=== PATIENT | male | born 1955 | race Caucasian/White ===

== ENCOUNTER 2020-09-08 10:50 | Emergency (ER) | payer OTHER, SELFPAY ==
[2020-09-08] VITALS (8 sets, daily range): BP systolic 111–134; BP diastolic 64–85; PULSE 80–106; RESP 8–20; TEMP 36.3; O2SAT 97–98; BMI 31.2
--- NOTE | 2020-09-08 11:00 | DI.RAD.S_ITS ---
PROCEDURE: XR CHEST 1V INDICATIONS: palpitations, chest pain TECHNIQUE: One view of the chest was acquired. COMPARISON: None. FINDINGS: Surgical changes and devices: None. Lungs and pleura: Lungs are clear. No pleural effusions or pneumothorax. Mediastinum: Mediastinal contours appear normal. Heart size is normal. Bones and chest wall: No suspicious bony lesions. Overlying soft tissues appear unremarkable. IMPRESSION: No acute cardiopulmonary pathology. Dictated by: Puneet Banuelos M.D. on 09/08/2020 at 11:52 Approved by: Puneet Banuelos M.D. on 09/08/2020 at 11:54
--- NOTE | 2020-09-08 11:05 | ED_ITS ---
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 Patient states for the past 27 hours he is had a heart rate as high as 140 and felt palpitations. He denies any chest pain and is currently not short of breath, though his heart rate has slowed to the 80s and 90s. He states that he thinks he has had other episodes of atrial fibrillation over the past week. He is not anticoagulated. He denies any change in medications or diet complaint: other Onset (ago): hour(s) Duration: constant Pain location: substernal Pain radiation: none Relieving factors: nothing Exacerbating factors: nothing Treatments prior to arrival chest pain: none Related Data Previous Rx's Medication Instructions Recorded apixaban [Eliquis] 5 mg PO BID #60 tab 09/08/20 metoprolol tartrate 50 mg PO BID #60 tab 09/08/20 Allergies Allergy/AdvReac Type Severity Reaction Status Date / Time No Known Drug Allergies Allergy Verified 09/08/20 11:04 Review of Systems Constitutional Constitutional: Denies chills, Denies fatigue, Denies fever(s), Denies frequent falls, Denies lethargy and Denies weakness Eyes Eyes: Denies change in vision, Denies eye discharge, Denies irritation and Denies loss of vision ENT Ears, Nose, Mouth, and Throat: Denies change in voice, Denies dizziness, Denies neck pain, Denies sore throat and Denies throat swelling Cardiovascular Cardiovascular: Denies chest pain, Reports irregular heart rhythm, Denies lightheadedness, Reports palpitations, Reports dyspnea, Reports dyspnea on exertion and Denies orthopnea Respiratory Respiratory: Denies cough, Reports dyspnea, Reports dyspnea on exertion and Denies wheezing Gastrointestinal Gastrointestinal: Denies abdominal pain, Denies change in bowel habits, Denies diarrhea, Denies nausea and Denies vomiting Musculoskeletal Musculoskeletal: Denies neck pain and Denies numbness Integumentary/Breasts Skin/Breast: Denies pruritus, Denies erythema, Denies rash and Denies wounds Neurologic Neurologic: Denies behavioral changes, Denies confusion, Denies dizziness, Denies frequent falls, Denies loss of vision, Denies numbness and Denies weakness Psychiatric Psychiatric: Denies anxiety, Denies behavioral changes, Denies confusion, Denies depression, Denies homicidal ideation and Denies suicidal ideation Endocrine Endocrine: Denies fatigue, Denies flushing and Reports palpitations Hematologic/Lymphatic Hematologic/Lymphatic: Denies easy bruising Allergic/Immunologic Allergic/Immunologic: Denies urticaria, Denies throat swelling and Denies wheezing Patient History Social History Smoking Status: Unknown if ever smoked Smoking Status: Never smoker alcohol intake frequency: 0-2 drinks per day Exam Narrative Exam Narrative: GENERAL: [65] year old patient appears stated age. Well- nourished, well-developed patient, in mild distress. HEAD: Atraumatic. Normocephalic. EYES: Pupils equal round and reactive. Extraocular motions intact. No scleral icterus. No injection or drainage. ENT: Nose without bleeding, purulent drainage. Throat without erythema, tonsillar hypertrophy or exudate. Airway patent. NECK: Trachea midline. Non tender CARDIOVASCULAR: Rapid and irregular rhythm without murmurs, gallops, or rubs. RESPIRATORY: Clear to auscultation. Breath sounds equal bilaterally. No wheezes, rales, or rhonchi. GASTROINTESTINAL: Abdomen soft, non-tender, nondistended. EXTREMITIES: No edema or joint tenderness. BACK: Nontender without deformity or crepitance. No flank tenderness. NEURO: AOx3. SKIN: No rash or erythema of visible areas Initial Vital Signs Initial Vital Signs: Vital Signs Temperature 97.3 F L 09/08/20 10:55 Pulse Rate 100 H 09/08/20 10:55 Respiratory Rate 20 09/08/20 10:55 Blood Pressure 133/85 09/08/20 10:55 Pulse Oximetry 97 09/08/20 10:55 Course Course Course Narrative: Patient heart rate slowed with Cardizem but did not convert to a sinus rhythm. I have had a discussion with the patient's journeyman patternmaker and given the uncertainty of the time line we sure the opinion that he is not a safe candidate for cardioversion at this time. He does recommend anticoagulation, rate control and close follow-up. Orders Ordered: Discontinued Medications Apixaban (Apixaban 5 Mg Tablet) 5 mg PO NOW ONE Stop: 09/08/20 11:03 Last Admin: 09/08/20 11:46 Dose: 5 mg Documented by: NICKI Diltiazem HCl (Diltiazem 5 Mg/Ml Sdv) 20 mg IV NOW ONE Stop: 09/08/20 11:03 Last Admin: 09/08/20 11:16 Dose: 20 mg Documented by: NICKI Sodium Chloride (Normal Saline 0.9%) 1,000 mls @ 150 mls/hr IV CONT QUINCY Last Admin: 09/08/20 11:17 Dose: 150 mls/hr Documented by: NICKI Reevaluation(s) Reevaluation #1: patient asymptomatic after rate control Vital Signs Vital signs: Vital Signs - 8 hr 09/08/20 10:55 09/08/20 11:14 09/08/20 11:15 Temperature 97.3 F L Pulse Rate 100 H 106 H 93 H Respiratory Rate 20 9 L 12 Blood Pressure 133/85 134/73 120/72 Pulse Oximetry 97 97 97 09/08/20 11:20 09/08/20 11:25 09/08/20 11:30 Temperature Pulse Rate 80 81 84 Respiratory Rate 12 10 L 9 L Blood Pressure 111/67 123/67 Pulse Oximetry 97 97 98 MDM - Chest Pain Lab Data Result diagrams: 09/08/20 11:05 09/08/20 11:05 Labs: Lab Results 09/08/20 09/08/20 09/08/20 Range/Units 11:05 11:05 11:05 WBC 11.1 H (4.5-11.0) X10^3/uL RBC 4.94 (4.5-5.9) X10^6/uL Hgb 15.4 (13.5-17.5) g/dL Hct 45.4 (41-53) % MCV 91.9 (80-100) fL MCH 31.1 (26-34) PG MCHC 33.9 (30-36) % RDW 14.1 (11.6-14.8) % Plt Count 269 (150-400) X10^3/uL Neut % (Auto) 68.7 (50-75) % Lymph % (Auto) 19.4 L (25-40) % [place] % (Auto) 7.5 (3-14) % Eos % (Auto) 3.3 (2-4) % Baso % (Auto) 1.1 (0-2) % Neut # (Auto) 7600 H (2081-3748) /uL Lymph # (Auto) 2100 (9224-4175) /uL [place] # (Auto) 800 (0-900) /uL Eos # (Auto) 400 (0-450) /uL Baso # (Auto) 100 (0-100) /uL PT 12.4 (10.1-12.7) SECONDS INR 1.1 (0.9-1.3) Sodium 135 L (137-145) mmol/L Potassium 4.1 (3.4-5.1) mmol/L Chloride 103 (98-107) mmol/L Carbon Dioxide 25 (22-32) mmol/L BUN 26 H (9-20) mg/dL Creatinine 0.68 (0.66-1.25) mg/dL Estimated GFR > 60.0 (>60) mL/min BUN/Creatinine Ratio 38.2 H (6-22) Glucose 108 (80-110) mg/dL Calcium 9.3 (8.4-10.2) mg/dL Magnesium (1.6-2.3) mg/dL Total Bilirubin 0.7 (0.2-1.3) mg/dL AST 34 (17-59) IU/L ALT 21 (<50) IU/L Alkaline Phosphatase 61 (38-126) U/L Total Creatine Kinase 111 (55-170) U/L CK-MB (CK-2) 1.92 (<2.37) ng/mL CK-MB (CK-2) Rel Index 1.7 (1.5-5.0) % Troponin I 0.031 (0.01-0.034) ng/mL Total Protein 7.5 (6.3-8.2) g/dL Albumin 4.4 (3.5-5.0) g/dL Globulin 3.1 (1.7-4.1) g/dL Albumin/Globulin Ratio 1.4 (1.0-2.8) Lipase 64 (23-300) U/L 09/08/20 Range/Units 12:06 WBC (4.5-11.0) X10^3/uL RBC (4.5-5.9) X10^6/uL Hgb (13.5-17.5) g/dL Hct (41-53) % MCV (80-100) fL MCH (26-34) PG MCHC (30-36) % RDW (11.6-14.8) % Plt Count (150-400) X10^3/uL Neut % (Auto) (50-75) % Lymph % (Auto) (25-40) % [place] % (Auto) (3-14) % Eos % (Auto) (2-4) % Baso % (Auto) (0-2) % Neut # (Auto) (6844-3314) /uL Lymph # (Auto) (2264-4383) /uL [place] # (Auto) (0-900) /uL Eos # (Auto) (0-450) /uL Baso # (Auto) (0-100) /uL PT (10.1-12.7) SECONDS INR (0.9-1.3) Sodium (137-145) mmol/L Potassium (3.4-5.1) mmol/L Chloride (98-107) mmol/L Carbon Dioxide (22-32) mmol/L BUN (9-20) mg/dL Creatinine (0.66-1.25) mg/dL Estimated GFR (>60) mL/min BUN/Creatinine Ratio (6-22) Glucose (80-110) mg/dL Calcium (8.4-10.2) mg/dL Magnesium 2.1 (1.6-2.3) mg/dL Total Bilirubin (0.2-1.3) mg/dL AST (17-59) IU/L ALT (<50) IU/L Alkaline Phosphatase (38-126) U/L Total Creatine Kinase (55-170) U/L CK-MB (CK-2) (<2.37) ng/mL CK-MB (CK-2) Rel Index (1.5-5.0) % Troponin I (0.01-0.034) ng/mL Total Protein (6.3-8.2) g/dL Albumin (3.5-5.0) g/dL Globulin (1.7-4.1) g/dL Albumin/Globulin Ratio (1.0-2.8) Lipase (23-300) U/L Discharge Plan Departure Patient Disposition: Home Clinical Impression: Atrial fibrillation Qualifiers: Atrial fibrillation type: paroxysmal Qualified Code(s): I48.0 - Paroxysmal atrial fibrillation Instructions: DI for Atrial Fibrillation Activity Restrictions/Additional Instructions: *You have been diagnosed with [ Atrial fibrillation ] *What to do: *Take medications as directed *Follow up with your journeyman patternmaker as planned. Let them know you were seen in the Emergency Department and that we ask that you be seen in follow up *Return to ER if you should have any new, worsening or concerning symptoms, such as [chest pain, shortness of breath, nausea, vomiting, fever greater than 101 F, abnormal bleeding or stool, urine or other bothersome symptoms] Prescriptions: New metoprolol tartrate 50 mg tablet 50 mg PO BID Qty: 60 RF: 0 Eliquis 5 mg tablet 5 mg PO BID Qty: 60 RF: 0 Referrals: Dao Renee MD [Primary Care Provider] - Luis Fernando Lagos MD [Physician] -
[2020-09-08 11:14] LABS: Add Manual Diff / Slide Review NO; Basophils Absolute Auto 100 /uL (0-100); Basophils Percent Auto 1.1 % (0-2); Eosinophils Absolute Auto 400 /uL (0-450); Eosinophils Percent Auto 3.3 % (2-4); Hematocrit 45.4 % (41-53); Hemoglobin 15.4 g/dL (13.5-17.5); Lymphocytes Absolute Auto 2100 /uL (1100-4500); Lymphocytes Percent Auto 19.4 % (25-40); Mean Corpuscular HGB Conc 33.9 % (30-36); Mean Corpuscular Hemoglobin 31.1 PG (26-34); Mean Corpuscular Volume 91.9 fL (80-100); Monocytes Absolute Auto 800 /uL (0-900); Monocytes Percent Auto 7.5 % (3-14); Neutrophils Absolute Auto 7600 /uL (1500-7000); Neutrophils Percent Auto 68.7 % (50-75); Platelet Count 269 X10^3/uL (150-400); Red Blood Cell Count 4.94 X10^6/uL (4.5-5.9); Red Cell Distribution Width 14.1 % (11.6-14.8); White Blood Cell Count 11.1 X10^3/uL (4.5-11.0)
[2020-09-08] MEDS: dilTIAZem 5 MG/ML SDV 20 MG IV (11:16)
[2020-09-08] MEDS: SODIUM CHLORIDE 0.9% 1,000 ML 150 ML IV (11:17)
--- NOTE | 2020-09-08 11:21 | PC.NURSE ---
pt given cardizem 20mg. HR decreasing, currently 75-90. denies CP SOB. not anticoagulated at home. takes ASA. sent her by PCP. Lungs clear. IVF infusing per order. NAD
[2020-09-08 11:29] LABS: Alanine Aminotransferase 21 IU/L (<50); Albumin 4.4 g/dL (3.5-5.0); Albumin Globulin Ratio 1.4 (1.0-2.8); Alkaline Phosphatase 61 U/L (38-126); Aspartate Aminotransferase 34 IU/L (17-59); BUN Creatinine Ratio 38.2 (6-22); Bilirubin Total 0.7 mg/dL (0.2-1.3); Blood Urea Nitrogen 26 mg/dL (9-20); Calcium 9.3 mg/dL (8.4-10.2); Carbon Dioxide 25 mmol/L (22-32); Chloride 103 mmol/L (98-107); Creatine Kinase 111 U/L (55-170); Estimated Glomerular Filt Rate > 60.0 mL/min (>60); Globulin 3.1 g/dL (1.7-4.1); Glucose 108 mg/dL (80-110); HEMOLYSIS 34 (0-50); Lipase 64 U/L (23-300); Potassium 4.1 mmol/L (3.4-5.1); Sodium 135 mmol/L (137-145); Total Protein 7.5 g/dL (6.3-8.2)
[2020-09-08 11:41] LABS: Troponin I 0.031 ng/mL (0.01-0.034)
[2020-09-08 11:45] LABS: CKMB % Relative Index 1.7 % (1.5-5.0); Creatine Kinase MB 1.92 ng/mL (<2.37)
[2020-09-08] MEDS: APIXABAN 5 MG TABLET PO (11:46)
[2020-09-08 11:54] LABS: INR 1.1 (0.9-1.3); Prothrombin Time 12.4 SECONDS (10.1-12.7)
[2020-09-08 12:14] LABS: Magnesium 2.1 mg/dL (1.6-2.3)
--- NOTE | 2020-09-18 08:14 | PC.NURSE ---
Late entry: NS stop time on 09/08/20 at 1218
== END 2020-09-08 12:18 | disposition home or self-care (01) ==
PROVIDERS: Emergency Provider Emergency Medicine; PCP Family Medicine
DX: I48.0 Paroxysmal atrial fibrillation (principal); R06.02 Shortness of breath
CPT/HCPCS: 36415; 71045; 80053; 82550; 82553; 83690; 83735; 84484; 85025; 85610; 93005; 96361; 96374; 99283; 99284

== ENCOUNTER 2021-10-15 19:16 | Emergency (ER) | payer OTHER, SELFPAY ==
[2021-10-15 19:26] VITALS: BP 170/79; PULSE 76; RESP 18; TEMP 36.6; O2SAT 97; BMI 31.8
--- NOTE | 2021-10-15 20:02 | ED.SKABFB ---
HPI - Skin/Abscess/Foreign Bdy General Chief complaint: Skin/Abscess/Foreign Body Stated complaint: Cellulitis Time Seen by Provider: 10/15/21 19:41 Source: patient Mode of arrival: Ambulatory History of Present Illness HPI narrative: 66-year-old male nonsmoker with history of hypertension and cellulitis presents with his for evaluation of some itchy skin overlying his right hip. He is concerned because while on a trip to [facility] in the end of August he developed significant pain, redness and swelling overlying his hip in presented to a healthcare facility. He was evaluated and admitted in the hospital, received a few doses of Kefzol and after an observation period was discharged on a prescription of Keflex x7 days. Upon returning to the [facility] he was evaluated and had significant improvement but was told if he developed any recurrence of symptoms he should present to the emergency department. He has very minimal overlying erythema and states the skin is itching but denies much in the way of pain or warmth. He denies any systemic findings such as fever, chills nor nausea or vomiting Related Data Home Medications Medication Instructions Recorded Confirmed dabigatran etexilate 150 mg 150 mg PO BID 10/15/21 10/15/21 capsule (Pradaxa) metoprolol succinate 50 mg 25 mg PO DAILY 10/15/21 10/15/21 tablet,extended release 24 hr Previous Rx's Medication Instructions Recorded doxycycline hyclate 100 mg tablet 100 mg PO BID #20 tab 10/15/21 Allergies Allergy/AdvReac Type Severity Reaction Status Date / Time No Known Drug Allergies Allergy Verified 10/15/21 19:35 Review of Systems Review of Systems Narrative: GENERAL: Denies chills, fatigue, malaise, fever, sweats. HEENT: Denies sinus pain, ear pain, sore throat, difficulty swallowing, dizziness. RESPIRATORY: Denies dyspnea, cough, wheezing, hemoptysis, sputum. CARDIOVASCULAR: Denies chest pain, palpitations, orthopnea, edema, GASTROINTESTINAL: Denies nausea, vomiting, abdominal pain, diarrhea, constipation, melena. : Denies dysuria, frequency, incontinence, hematuria, urinary retention. MUSCULOSKELETAL: denies weakness, joint pain, or bony pain SKIN: See HPI NEUROLOGIC: Denies weakness, headache, numbness, change in speech, confusion, seizures, incoordination. PSYCHIATRIC: No concerning psychosocial issues. 12 point review of systems is negative except for those stated above Patient History Social History Smoking Status: Never smoker Smoking Status: Never smoker alcohol intake frequency: holidays/special occasions only Substance Use Type: does not use Exam Narrative Exam Narrative: GENERAL: [66] year old patient appears stated age. Well-developed patient, in mild distress. HEAD: Atraumatic. Normocephalic. EYES: Pupils equal round and reactive. Extraocular motions intact. No scleral icterus. No injection or drainage. ENT: Nose without bleeding, purulent drainage. Throat without erythema, tonsillar hypertrophy or exudate. Airway patent. NECK: Trachea midline. Non tender CARDIOVASCULAR: Regular rate and rhythm without murmurs, gallops, or rubs. RESPIRATORY: Clear to auscultation. Breath sounds equal bilaterally. No wheezes, rales, or rhonchi. GASTROINTESTINAL: Abdomen soft, non-tender, nondistended. EXTREMITIES: No edema or joint tenderness. BACK: Nontender without deformity or crepitance. No flank tenderness. NEURO: AOx3. SKIN: Faint reticular pattern overlying right lateral hip, no pain, warmth duration, fluctuance or drainage noted. Patient has full, painless range of motion of the hip Initial Vital Signs Initial Vital Signs: Vital Signs Temperature 97.8 F 10/15/21 19:26 Pulse Rate 76 10/15/21 19:26 Respiratory Rate 18 10/15/21 19:26 Blood Pressure 170/79 H 10/15/21 19:26 Pulse Oximetry 97 10/15/21 19:26 Course Orders Ordered: Discontinued Medications Doxycycline Hyclate (Doxycycline Hyclate 100 Mg Tablet) 100 mg PO NOW ONE Stop: 10/15/21 20:34 Last Admin: 10/15/21 20:40 Dose: 100 mg Documented by: AUPDIKE Vital Signs Vital signs: Vital Signs - 8 hr 10/15/21 19:26 Temperature 97.8 F Pulse Rate 76 Respiratory Rate 18 Blood Pressure 170/79 H Pulse Oximetry 97 MDM - Skin/Abscess/Foreign Bdy MDM Narrative Medical decision making narrative: Patient presents for evaluation of increasing itching in recently cellulitic skin. He has no systemic findings such as fever, chills nor nausea or vomiting. He states this is how he felt prior to the onset of cellulitis a few weeks ago. We discussed and agree that given his minor symptoms and lack of systemic findings that labs and IV are not likely to provide meaningful information. Furthermore, we discussed the possibility of a repeat round of Keflex versus Keflex plus Bactrim versus doxycycline. Doxycycline thought to be appropriate given its ease of administration and appropriate coverage of staph, strep and MRSA. Patient given return precautions and questions answered to his apparent satisfaction Discharge Plan Departure Patient Disposition: Home Clinical Impression: Cellulitis Instructions: DI for Cellulitis -- Adult Activity Restrictions/Additional Instructions: *You have been diagnosed with [right hip cellulitis. As we discussed your history and physical exam are very reassuring and at this point in time there is no indication for IV, labs or imaging. *What to do: *Please continue to take your regular medications as directed. [x ] New medication prescriptions sent to your pharmacy: [[facility] in [place]] [ ] New medication written as a paper prescription [ ] No new medications given *Please follow up with your primary care provider in 2-3 days, call for an appointment. Let them know you were seen in the Emergency Department and that we ask that you be seen in follow up. We will electronically transmit a record of today's note if your PCP is in our system *If you do not have a primary care provider please contact the [facility] Resource line at [phone]. They will ask some questions about your medical history and help get you set up with a doctor in the community. *Return to Emergency Department if you should have any new, worsening or concerning symptoms, such as [fever greater than 101 F, shaking chills, worsening pain, persistent vomiting or other bothersome symptoms] Prescriptions: New doxycycline hyclate 100 mg tablet 100 mg PO BID Qty: 20 0RF No Action metoprolol succinate 50 mg tablet extended release 24 hr 25 mg PO DAILY 0RF Label Comments: take 1 tablet by mouth once daily Pradaxa 150 mg capsule 150 mg PO BID 0RF Label Comments: take 1 capsule by mouth twice a day Referrals: Dao Renee MD [Primary Care Provider] -
[2021-10-15] MEDS: DOXYCYCLINE HYCLATE 100 MG TABLET PO (20:40)
== END 2021-10-15 20:42 | disposition home or self-care (01) ==
PROVIDERS: Emergency Provider Emergency Medicine; PCP Family Medicine
DX: L03.115 Cellulitis of right lower limb (principal)
CPT/HCPCS: 99283

== ENCOUNTER → 2022-02-21 09:05 | Outpatient (CLI) | payer OTHER, SELFPAY ==
[2022-02-21 11:56] LABS: COVID19 -Nasal RAPID Negative (Negative)
--- NOTE | 2022-02-21 18:45 | DI.NM.S_ITS ---
DATE OF SERVICE: 02/21/2022 PROCEDURE: Exercise perfusion study. INDICATION: Paroxysmal AFib with right bundle branch block, hypertension and hyperlipidemia. RADIOPHARMACEUTICAL: 26.6 millicurie technetium-99m Myoview IV was injected at stress and 12.9 millicurie technetium-99m Myoview IV was injected at rest. CARDIAC STRESS: The patient underwent exercise perfusion study under the supervision of an attending staff. The patient walked on Candelario protocol for 7 minutes and 36 seconds, achieved maximum heart rate of 184, which was 120 percent of target heart rate. Peak baseline blood pressure 132/74 mmHg. Peak blood pressure was 172/90 mmHg. Achieved 10.1 METs of workload. LUCIA -3 percent. The patient did not have any anginal symptoms. Had some shortness of breath. Baseline rhythm was sinus with underlying right bundle branch block. During stress, patient has some intermittent PACs and PVCs. At peak exercise, there was no significant arrhythmia. In recovery, the patient has a four-beat run of SVT. No obvious atrial fibrillation or sustained ventricular tachycardia seen. RAW DATA: Raw data there is increased subdiaphragmatic activity. The patient's weight is 255 pounds. GATED STUDY: Stress LV ejection fraction 68 percent without any obvious wall motion abnormalities. Resting end-diastolic volume 187 mL. TID ratio 0.81, which is within normal limits. Lung/heart ratio 0.34, which is within normal limits. MYOCARDIAL PERFUSION SCAN: Stress supine, resting supine and stress prone images were compared to each other. Stress supine and resting supine images revealed large size, moderate to severely decreased perfusion of inferior wall extending into the inferoapex, as well as inferoseptum and mildly decreased perfusion of distal anteroseptum which got significantly improved during stress prone images, suggestive of likely diaphragmatic tissue attenuation artifact. No convincing ischemia infarction pattern on stress prone images. CONCLUSION: I will call this study likely a normal myocardial perfusion study with evidence of diaphragmatic tissue attenuation artifact, which got improved during the stress prone images. Fair exercise tolerance. Functional aerobic impairment -3 percent. Enhanced chronotropic response. Peak blood pressure 172/90 mmHg. No anginal symptoms. No complex significant arrhythmias during stress test, other than one short run of supraventricular tachycardia and occasional isolated premature atrial contractions and premature ventricular contractions. Overall low-risk exercise myocardial perfusion scan. Dao Burgos - FIRE ENGINEER/fn/[place] doc#: [id number]/job#: [id number] dd: 02/21/2022 16:51:00 dt: 02/21/2022 18:18:00 DICTATING MD/COPIES TO: Mikhail August MD COPIES MNE: IRIS;
== END ==
PROVIDERS: PCP Physician Assistant; Referring Provider Specialist; Visit Provider Specialist
DX: I48.0 Paroxysmal atrial fibrillation (principal); I45.10 Unspecified right bundle-branch block; I10 Essential (primary) hypertension; E78.2 Mixed hyperlipidemia; Z20.822 Contact with and (suspected) exposure to COVID-19
CPT/HCPCS: 36415; 78452; 80053; 80061; 83704; 83735; 87635; 93017; A9502

== ENCOUNTER → 2022-02-21 10:03 | Outpatient (CLI) | payer OTHER, SELFPAY ==
[2022-02-21 12:01] LABS: Alanine Aminotransferase 21 IU/L (<50); Albumin Globulin Ratio 1.4 (1.0-2.8); Alkaline Phosphatase 61 U/L (38-126); Aspartate Aminotransferase 34 IU/L (17-59); BUN Creatinine Ratio 27.7 (6-22); Bilirubin Total 0.5 mg/dL (0.2-1.3); Blood Urea Nitrogen 18 mg/dL (9-20); Calcium 8.8 mg/dL (8.4-10.2); Carbon Dioxide 28 mmol/L (22-32); Chloride 105 mmol/L (98-107); Estimated Glomerular Filt Rate > 60 mL/min (>60); Globulin 2.9 g/dL (1.7-4.1); Glucose 95 mg/dL (80-110); HEMOLYSIS < 15 (0-50); Potassium 4.2 mmol/L (3.4-5.1); Sodium 139 mmol/L (137-145); Total Protein 6.9 g/dL (6.3-8.2)
[2022-02-23 11:29] LABS: Cholesterol, Total 112 mg/dL (100-199); HDL-Cholesterol 49 mg/dL (>39); HDL-Particle (Total) 28.3 umol/L (>=30.5); LDL Particle 542 nmol/L (<1000); LDL Size 20.4 nm (>20.5); LDL-Cholsterol 47 mg/dL (0-99); LP-IR Score 35 (<=45); Small LDL- Particle 191 nmol/L (<=527); Triglycerides 78 mg/dL (0-149)
== END ==
PROVIDERS: PCP Physician Assistant; Referring Provider Specialist; Visit Provider Specialist
DX: I48.0 Paroxysmal atrial fibrillation (principal); E78.2 Mixed hyperlipidemia; I10 Essential (primary) hypertension
CPT/HCPCS: 36415; 80053; 80061; 83704; 83735

== ENCOUNTER 2022-02-23 10:33 | Emergency (ER) | payer OTHER, SELFPAY ==
[2022-02-23] VITALS (15 sets, daily range): BP systolic 114–145; BP diastolic 74–94; PULSE 58–111; RESP 8–44; TEMP 36; O2SAT 91–99; BMI 32.5
--- NOTE | 2022-02-23 10:38 | DI.RAD.S_ITS ---
PROCEDURE: XR CHEST 1V INDICATIONS: chest pain TECHNIQUE: One view of the chest was acquired. COMPARISON: [facility], CR, XR CHEST 1V, 09/08/2020, 11:08. FINDINGS: Surgical changes and devices: None. Lungs and pleura: Lungs are clear. No pleural effusions or pneumothorax. Mediastinum: Mediastinal contours appear normal. Heart size is normal. Bones and chest wall: No suspicious bony lesions. Overlying soft tissues appear unremarkable. IMPRESSION: No evidence acute pulmonary process. Dictated by: Christopher Robison M.D. on 02/23/2022 at 11:40 Approved by: Christopher Robison M.D. on 02/23/2022 at 11:41
[2022-02-23 10:57] LABS: Add Manual Diff / Slide Review NO; Basophils Absolute Auto 100 /uL (0-100); Basophils Percent Auto 1.1 % (0-2); Eosinophils Absolute Auto 700 /uL (0-450); Eosinophils Percent Auto 9.2 % (2-4); Hematocrit 43.3 % (41-53); Hemoglobin 14.9 g/dL (13.5-17.5); Lymphocytes Absolute Auto 2200 /uL (1100-4500); Lymphocytes Percent Auto 28.4 % (25-40); Mean Corpuscular HGB Conc 34.3 % (30-36); Mean Corpuscular Hemoglobin 31.4 PG (26-34); Mean Corpuscular Volume 91.5 fL (80-100); Monocytes Absolute Auto 800 /uL (0-900); Monocytes Percent Auto 9.9 % (3-14); Neutrophils Absolute Auto 3900 /uL (1500-7000); Neutrophils Percent Auto 51.4 % (50-75); Platelet Count 194 X10^3/uL (150-400); Red Blood Cell Count 4.73 X10^6/uL (4.5-5.9); Red Cell Distribution Width 14.3 % (11.6-14.8); White Blood Cell Count 7.6 X10^3/uL (4.5-11.0)
--- NOTE | 2022-02-23 11:11 | ED_ITS ---
HPI - Arrhythmia/Palpitations General Chief Complaint: Arrhythmia/Palpitations Stated Complaint: AFIB Time Seen by Provider: 02/23/22 10:57 Source: patient Mode of arrival: Ambulatory History of Present Illness HPI narrative: Patient is a 67-year-old male history of paroxysmal atrial fibrillation taking Pradaxa and metoprolol succinate. Says he went into AFib last night. As routine as they were falling asleep lays on his chest and listened to his heart. She noticed that it was fast and irregular last night. This morning he called his machine deicer element winder he took an extra dose of metoprolol. Heart rate this morning was 90 heart rate now seems to be in the 90s. He is otherwise very asymptomatic. He says that he very rarely has symptoms. He has been cardioverted at least 4 times and only 1 of the times to have symptoms. He was recommended by machine deicer element winder today to come in and be converted. He has not missed any doses of Pradaxa he has been on it for number of years. Related Data Home Medications Medication Instructions Recorded Confirmed dabigatran etexilate 150 mg 150 mg PO BID 10/15/21 10/15/21 capsule (Pradaxa) metoprolol succinate 50 mg 25 mg PO DAILY 10/15/21 10/15/21 tablet,extended release 24 hr Previous Rx's Medication Instructions Recorded doxycycline hyclate 100 mg tablet 100 mg PO BID #20 tabs 10/15/21 Allergies Allergy/AdvReac Type Severity Reaction Status Date / Time No Known Drug Allergies Allergy Verified 02/23/22 10:35 Review of Systems Review of Systems Narrative: GENERAL: Denies chills, fatigue, malaise, fever, sweats, travel HEENT: Denies sinus pain, ear pain, sore throat, difficulty swallowing, neck pain RESPIRATORY: Denies dyspnea, cough, wheezing, hemoptysis, sputum. CARDIOVASCULAR: See HPI GASTROINTESTINAL: Denies nausea, vomiting, abdominal pain, diarrhea, constipation, melena. : Denies dysuria, frequency, incontinence, hematuria, urinary retention, flank pain. MUSCULOSKELETAL: Denies weakness, joint pain, or bony pain SKIN: No rash, no erythema, no pruritus NEUROLOGIC: Denies weakness, dizziness, headache, numbness, change in speech, confusion PSYCHIATRIC: No concerning psychosocial issues. 12 point review of systems is negative except for those stated above and HPI Patient History Social History Smoking Status: Never smoker Smoking Status: Never smoker alcohol intake frequency: holidays/special occasions only Substance Use Type: does not use Exam Initial Vital Signs Initial Vital Signs: Vital Signs Temperature 96.8 F L 02/23/22 10:35 Pulse Rate 70 02/23/22 10:35 Respiratory Rate 15 02/23/22 10:35 Blood Pressure 141/94 H 02/23/22 10:35 Pulse Oximetry 99 02/23/22 10:35 Oxygen Delivery Method 02/23/22 10:35 GENERAL: Alert pleasant 67-year-old male and in no acute distress. HEENT: Head atraumatic,EOMI, pupils reactive, face symmetric, moist mucous membranes CARDIOVASCULAR: Irregular no murmur RESPIRATORY: Breath sounds equal bilaterally, no wheezes rales or rhonchi. ABDOMEN: Soft, nontender. Normoactive bowel sounds all 4 quadrants. No guarding or rebound. EXTREMITIES: Normal range of motion, no clubbing or edema. Neurovascularly intact NEUROLOGICAL: Alert and oriented x4.Normal gait and speech. SKIN: Warm, dry, no laceration, no petechiae, no rashes or lesions. Procedures Cardioversion Consent Signed: Yes Indication: a.fib Stability: Stable Number of attempts (shocks): 1 Joules used: 150 Cardiac rhythm post-cardioversion: sinus Procedural Sedation Consent signed: Yes Time out performed: Yes Indication: cardioversion ASA Class: II Mallampati Airway Classification: Class II IV Propofol dose (mg): 100 Intraservice time/total sedation time (min): 12 ED Sedation Level: Moderate (Concious) Patient Tolerated Procedure: Well and No complications Complications: none Course Orders Ordered: ED Orders 02/23/22 10:38 XR chest 1V Stat 02/23/22 10:41 EKG-12 Lead Stat 02/23/22 10:45 Complete Blood Count AUTO DIFF Stat Comprehensive Metabolic Panel Stat Lipase Stat Magnesium Stat Partial Thromboplastin Time Stat Prothrombin Time INR Stat Troponin & CK Cardiac Panel Stat 02/23/22 11:45 COVID19 -Nasal RAPID/Pre-Proc Stat 02/23/22 12:20 EKG-12 Lead Routine Discontinued Medications Propofol (Propofol 200 Mg/20 Ml Vial) 120 mg 1 mg/kg (120 mg) IV NOW ONE Stop: 02/23/22 11:32 Last Admin: 02/23/22 12:17 Dose: 100 mg Documented By: AT Vital Signs Vital signs: Vital Signs - 8 hr 02/23/22 10:35 02/23/22 11:07 02/23/22 11:09 Temperature 96.8 F L Pulse Rate 70 111 H 97 H Respiratory Rate 15 44 H 12 Blood Pressure 141/94 H Pulse Oximetry 99 98 Oxygen Delivery Method Room Air Oxygen Flow Rate 02/23/22 11:09 02/23/22 11:30 02/23/22 11:30 Temperature Pulse Rate 90 Respiratory Rate 11 L Blood Pressure 128/74 145/75 H Pulse Oximetry 97 Oxygen Delivery Method Oxygen Flow Rate 02/23/22 12:00 02/23/22 12:01 02/23/22 12:01 Temperature Pulse Rate 95 H 94 H Respiratory Rate 12 Blood Pressure 126/79 Pulse Oximetry 98 98 Oxygen Delivery Method Room Air Oxygen Flow Rate 02/23/22 12:21 02/23/22 12:21 02/23/22 12:25 Temperature Pulse Rate 61 63 Respiratory Rate 14 15 Blood Pressure 134/78 Pulse Oximetry 91 96 Oxygen Delivery Method Nasal Cannula Oxygen Flow Rate 4 02/23/22 12:25 02/23/22 12:30 02/23/22 12:30 Temperature Pulse Rate 60 Respiratory Rate 11 L Blood Pressure 124/76 117/76 Pulse Oximetry 97 Oxygen Delivery Method Room Air Oxygen Flow Rate 02/23/22 12:35 02/23/22 12:35 02/23/22 12:40 Temperature Pulse Rate 58 L Respiratory Rate 8 L Blood Pressure 116/75 114/74 Pulse Oximetry 98 Oxygen Delivery Method Oxygen Flow Rate 02/23/22 12:40 02/23/22 12:45 02/23/22 12:50 Temperature Pulse Rate 58 L 59 L Respiratory Rate 9 L 12 Blood Pressure 121/75 120/79 Pulse Oximetry 98 96 Oxygen Delivery Method Room Air Room Air Oxygen Flow Rate 02/23/22 12:50 02/23/22 12:55 02/23/22 13:00 Temperature Pulse Rate 60 60 Respiratory Rate 12 12 Blood Pressure 130/81 Pulse Oximetry 98 97 Oxygen Delivery Method Room Air Room Air Oxygen Flow Rate 02/23/22 13:00 Temperature Pulse Rate 61 Respiratory Rate 21 Blood Pressure Pulse Oximetry 97 Oxygen Delivery Method Room Air Oxygen Flow Rate MDM - Arrhythmia/Palpitations Lab Data Result diagrams: 02/23/22 10:45 02/23/22 10:45 Labs: Lab Results 02/23/22 02/23/22 02/23/22 Range/Units 10:45 10:45 10:45 WBC 7.6 (4.5-11.0) X10^3/uL RBC 4.73 (4.5-5.9) X10^6/uL Hgb 14.9 (13.5-17.5) g/dL Hct 43.3 (41-53) % MCV 91.5 (80-100) fL MCH 31.4 (26-34) PG MCHC 34.3 (30-36) % RDW 14.3 (11.6-14.8) % Plt Count 194 (150-400) X10^3/uL Neut % (Auto) 51.4 (50-75) % Lymph % (Auto) 28.4 (25-40) % [place] % (Auto) 9.9 (3-14) % Eos % (Auto) 9.2 H (2-4) % Baso % (Auto) 1.1 (0-2) % Neut # (Auto) 3900 (6884-1891) /uL Lymph # (Auto) 2200 (3737-1278) /uL [place] # (Auto) 800 (0-900) /uL Eos # (Auto) 700 H (0-450) /uL Baso # (Auto) 100 (0-100) /uL PT 13.5 H (10.1-12.7) SECONDS INR 1.2 (0.9-1.3) APTT 42 H (26-36) SECONDS Sodium 141 (137-145) mmol/L Potassium 4.3 (3.4-5.1) mmol/L Chloride 108 H (98-107) mmol/L Carbon Dioxide 27 (22-32) mmol/L BUN 23 H (9-20) mg/dL Creatinine 0.72 (0.66-1.25) mg/dL Estimated GFR > 60 (>60) mL/min BUN/Creatinine Ratio 31.9 H (6-22) Glucose 109 (80-110) mg/dL Calcium 8.8 (8.4-10.2) mg/dL Magnesium 2.1 (1.6-2.3) mg/dL Total Bilirubin 0.3 (0.2-1.3) mg/dL AST 36 (17-59) IU/L ALT 23 (<50) IU/L Alkaline Phosphatase 58 (38-126) U/L Total Creatine Kinase 143 (55-170) U/L CK-MB (CK-2) 1.81 (<2.37) ng/mL CK-MB (CK-2) Rel Index 1.3 L (1.5-5.0) % Troponin I 0.026 (0.01-0.034) ng/mL Total Protein 7.0 (6.3-8.2) g/dL Albumin 4.0 (3.5-5.0) g/dL Globulin 3.0 (1.7-4.1) g/dL Albumin/Globulin Ratio 1.3 (1.0-2.8) Lipase 63 (23-300) U/L SARS-CoV-2 (PCR) (Negative) 02/23/22 Range/Units 11:45 WBC (4.5-11.0) X10^3/uL RBC (4.5-5.9) X10^6/uL Hgb (13.5-17.5) g/dL Hct (41-53) % MCV (80-100) fL MCH (26-34) PG MCHC (30-36) % RDW (11.6-14.8) % Plt Count (150-400) X10^3/uL Neut % (Auto) (50-75) % Lymph % (Auto) (25-40) % [place] % (Auto) (3-14) % Eos % (Auto) (2-4) % Baso % (Auto) (0-2) % Neut # (Auto) (6223-4207) /uL Lymph # (Auto) (7867-0865) /uL [place] # (Auto) (0-900) /uL Eos # (Auto) (0-450) /uL Baso # (Auto) (0-100) /uL PT (10.1-12.7) SECONDS INR (0.9-1.3) APTT (26-36) SECONDS Sodium (137-145) mmol/L Potassium (3.4-5.1) mmol/L Chloride (98-107) mmol/L Carbon Dioxide (22-32) mmol/L BUN (9-20) mg/dL Creatinine (0.66-1.25) mg/dL Estimated GFR (>60) mL/min BUN/Creatinine Ratio (6-22) Glucose (80-110) mg/dL Calcium (8.4-10.2) mg/dL Magnesium (1.6-2.3) mg/dL Total Bilirubin (0.2-1.3) mg/dL AST (17-59) IU/L ALT (<50) IU/L Alkaline Phosphatase (38-126) U/L Total Creatine Kinase (55-170) U/L CK-MB (CK-2) (<2.37) ng/mL CK-MB (CK-2) Rel Index (1.5-5.0) % Troponin I (0.01-0.034) ng/mL Total Protein (6.3-8.2) g/dL Albumin (3.5-5.0) g/dL Globulin (1.7-4.1) g/dL Albumin/Globulin Ratio (1.0-2.8) Lipase (23-300) U/L SARS-CoV-2 (PCR) Negative (Negative) Imaging Data Chest x-ray: Radiologist's Impresson: [address] [address] XRay Report Signed Patient: Dao Burgos MR#: [id number] : 1955 Acct:[id number] Age/Sex: 67 / M Date of Service: 02/23/22 Loc: ED Accession Number: [id number] ?? Procedure: XR chest 1V Ordering Provider: Zuly Sethi D.O. PROCEDURE:? XR CHEST 1V ? INDICATIONS:? chest pain ? TECHNIQUE:? One view of the chest was acquired.? ? COMPARISON:? [facility], CR, XR CHEST 1V, 09/08/2020, 11:08. ? FINDINGS:? ? Surgical changes and devices:? None.? ? Lungs and pleura:? Lungs are clear.? No pleural effusions or pneumothorax.? ? Mediastinum:? Mediastinal contours appear normal.? Heart size is normal.? ? Bones and chest wall:? No suspicious bony lesions.? Overlying soft tissues appear unremarkable.? ? IMPRESSION:? No evidence acute pulmonary process. ? ? ? Dictated by: Christopher Robison M.D. on 02/23/2022 at 11:40 ? ? Approved by: Christopher Robison M.D. on 02/23/2022 at 11:41 ? ECG Data Interpretation: Atrial fibrillation rate [address] changes similar to previous EKG in 2020, right bundle-branch block noted and old Normal sinus rhythm rate 63 MN interval 46 QRS 88 QTC 437 no changes MDM Narrative Medical decision making narrative: The patient has been taking Pradaxa. Sounds as though he checks really regularly even though he does not have symptoms. Went into AFib last night no contraindication for cardioversion. Patient was easily cardioverted. No complications from cardioversion. Discharge Plan Departure Patient Disposition: Home Clinical Impression: Atrial fibrillation Instructions: DI for Atrial Fibrillation Activity Restrictions/Additional Instructions: *You have been diagnosed with atrial fibrillation *What to do: At this time you were successfully cardioverted. Please follow-up with your machine deicer element winder. *Continue to take medications as directed *Follow up with your primary care provider in 2-3 days or call [phone] *Return to ER if you should have shortness of breath chest pain palpitations di zziness or any new, worsening or concerning symptoms Prescriptions: No Action metoprolol succinate 50 mg tablet extended release 24 hr 25 mg PO DAILY Label Comments: take 1 tablet by mouth once daily Pradaxa 150 mg capsule 150 mg PO BID Label Comments: take 1 capsule by mouth twice a day doxycycline hyclate 100 mg tablet 100 mg PO BID Qty: 20 0RF Referrals: Audra Mendoza PA-C [Primary Care Provider] - Luis Fernando Lagos MD [Physician] - Visit Report Forms: Patient Portal/API
[2022-02-23 11:13] LABS: INR 1.2 (0.9-1.3); Prothrombin Time 13.5 SECONDS (10.1-12.7)
[2022-02-23 11:16] LABS: PTT Partial Thromboplastin Tim 42 SECONDS (26-36)
[2022-02-23 11:27] LABS: Alanine Aminotransferase 23 IU/L (<50); Albumin Globulin Ratio 1.3 (1.0-2.8); Alkaline Phosphatase 58 U/L (38-126); Aspartate Aminotransferase 36 IU/L (17-59); BUN Creatinine Ratio 31.9 (6-22); Bilirubin Total 0.3 mg/dL (0.2-1.3); Blood Urea Nitrogen 23 mg/dL (9-20); Calcium 8.8 mg/dL (8.4-10.2); Carbon Dioxide 27 mmol/L (22-32); Chloride 108 mmol/L (98-107); Creatine Kinase 143 U/L (55-170); Estimated Glomerular Filt Rate > 60 mL/min (>60); Glucose 109 mg/dL (80-110); HEMOLYSIS < 15 (0-50); Lipase 63 U/L (23-300); Magnesium 2.1 mg/dL (1.6-2.3); Potassium 4.3 mmol/L (3.4-5.1); Sodium 141 mmol/L (137-145)
[2022-02-23 11:38] LABS: Troponin I 0.026 ng/mL (0.01-0.034)
[2022-02-23 11:42] LABS: CKMB % Relative Index 1.3 % (1.5-5.0); Creatine Kinase MB 1.81 ng/mL (<2.37)
[2022-02-23 12:13] LABS: COVID19 -Nasal RAPID Negative (Negative)
[2022-02-23] MEDS: propofoL 200 MG/20 ML VIAL 120 MG IV (12:17)
== END 2022-02-23 13:10 | disposition home or self-care (01) ==
PROVIDERS: Emergency Provider Emergency Medicine; PCP Physician Assistant
DX: I48.91 Unspecified atrial fibrillation (principal); Z20.822 Contact with and (suspected) exposure to COVID-19; R07.9 Chest pain, unspecified
CPT/HCPCS: 71045; 80053; 82550; 82553; 83690; 83735; 84484; 85025; 85610; 85730; 87635; 92960; 93005; 99152; 99285; C9803; J2704

== ENCOUNTER 2025-03-26 09:04 | Day surgery (SDC) | payer MEDICARE, BC, SELFPAY ==
--- NOTE | 2025-03-26 | PATH_ITS ---
[facility] Accession Number: [id number] No. of containers..01 Tissue . 01 Material submitted: . rectum - RECTAL POLYP . 01 Diagnosis: RECTAL POLYP: Tubular adenoma. MRV 04/02/2025 1753 Local . 01 Electronically signed: . Austin Giron MD, PhD, Pathologist NPI- [id number] . 01 Gross description: . Received in formalin with two patient identifiers and labeled reactal polyp. The specimen consists of two arellano polypoid soft tissue fragments measuring 0.6 x 0.6 x 0.6 cm and 0.4 x 0.3 x 0.2 cm. The larger polyp is inked green and bisected. The smaller polyp is not inked or bisected. The entire specimen is submitted in cassette A1. ([id number]) /BRANDI 03/31/2025 2135 Local . 01 Pathologist provided ICD-10: D12.8 . 01 CPT . 390163 Specimen Comment: A courtesy copy of this report has been sent to [phone] Performed at: [address] [id number] MD Mike Bass MD Phone: [phone]
[2025-03-26 09:22] VITALS: BP 147/81; PULSE 70; RESP 16; TEMP 36.4; O2SAT 98
[2025-03-26] MEDS: LACTATED RINGERS 1,000 ML 84 ML IV (09:32)
--- NOTE | 2025-03-26 09:43 | PM.HP.IH.1 ---
History of Present Illness History of Present Illness Date Patient Seen: 03/26/25 Time Patient Seen: 09:44 Chief complaint: Colonoscopy Narrative: Dao is a 70-year-old man who presents for a colonoscopy. His last one was about 15 years ago and was normal. No family history of colon cancer. [facility] Social History Smoking Status: Never smoker Meds Home Medications and Allergies Home Medications ?Medication ?Instructions ?Recorded ?Confirmed ?Type dabigatran etexilate 150 mg 150 mg PO BID 10/15/21 03/25/25 History capsule (Pradaxa) doxycycline hyclate 100 mg tablet 100 mg PO BID #20 tabs 10/15/21 03/26/25 Rx metoprolol succinate 50 mg 25 mg PO DAILY 10/15/21 03/26/25 History tablet,extended release 24 hr sodium,potassium,mag sulfates 17.5 See Rx Instructions PO .COMPLEX 10/30/24 Rx gram-3.13 gram-1.6 gram oral soln #354 mL (Suprep Bowel Prep Kit) atorvastatin 20 mg tablet 20 mg PO DAILY 03/26/25 03/26/25 History sildenafil 100 mg tablet 50 - 100 mg PO DAILY 03/26/25 03/26/25 History Allergies Allergy/AdvReac Type Severity Reaction Status Date / Time No Known Drug Allergies Allergy Verified 03/26/25 09:12 Exam Vital Signs (past 8 hours): - 03/26/25 09:22 Temperature 97.6 F Pulse Rate 70 Respiratory Rate 16 Blood Pressure 147/81 H Pulse Oximetry 98 Oxygen Delivery Method Room Air Oxygen Delivery Method Room Air Const General: No acute distress Assessment & Plan Assessment and plan (1) Colon cancer screening: Status: Acute Plan Colonoscopy for colon cancer screening Time-Based Coding :: [TOTAL MINUTES] spent with patient and on the chart (including review of chart, obtaining history, exam, reviewing outside data, placing orders, documenting exam and treatment plan, and counseling patient) on [DATE]. [employer] Supervisor Document charge(s): No
[2025-03-26 10:21] VITALS: BP 131/71; PULSE 61; RESP 16; TEMP 36.8; O2SAT 99
--- NOTE | 2025-03-26 10:21 | PM.OP.COLON ---
Operative Date/Time/Diagnoses Date of procedure: 03/26/25 Time of procedure: 10:22 Pre-op diagnosis: Colon cancer screening Post-op diagnosis: same Procedure & Clinicians Study performed: Colonoscopy Same procedure(s) as scheduled: Yes Surgeon: Everette Maier Anesthesia Type: MAC +/- Procedure Notes Procedure in detail: Surgeon: Everette Maier MD Anesthesia: Preet Cabrales MD Procedure: The patient was brought to the endoscopy suite, placed in left lateral decubitus position. The patient was connected to monitoring devices. A time-out was performed. Sedation was administered. Once the patient was adequately sedated, a digital rectal exam was performed and was normal. The scope was then inserted and advanced to the cecum where the appendiceal orifice was identified and photographed. The scope was then slowly withdrawn over greater than 6 minutes. The mucosa was thoroughly inspected. There was a 7 mm polyp in the rectum with a cold snare. The polypectomy site was bleeding so a single sure fire clip was applied and hemostasis was achieved. The scope was retroflexed in the rectum. No other abnormalities found. The scope was straightened and removed. The patient was awakened and brought to recovery. Scope withdrawal time: 11 minutes Sedation time: 18 minutes EBL: 5 mL Findings: 7 mm rectal polyp Post-procedure Disposition: PACU
[2025-03-26 10:30] VITALS: BP 127/82; PULSE 70; RESP 15; TEMP 36.6; O2SAT 99
== END 2025-03-26 10:44 | disposition home or self-care (01) ==
PROVIDERS: PCP Physician Assistant; Referring Provider Surgery; Visit Provider Surgery
PROC: 0DJD8ZZ Inspection of Lower Intestinal Tract, Via Natural or Artificial Opening Endoscopic (ICD-10-PCS; CPT 45378; principal; 2025-03-26 10:00)
DX: Z12.11 Encounter for screening for malignant neoplasm of colon (principal); D12.8 Benign neoplasm of rectum
CPT/HCPCS: 45385; J2250; J2704